=== PATIENT | male | born 1945 | race Caucasian/White ===

== ENCOUNTER → 2016-08-21 | Outpatient (CLI) | payer OTHER | END | disposition home or self-care (01) | LOC: PCVCCLINIC 09:34 | PROVIDERS: ATTEND Internal Medicine Cardiovascular Disease | DX: I11.0 Hypertensive heart disease with heart failure (principal); I50.9 Heart failure, unspecified; I48.0 Paroxysmal atrial fibrillation; I10 Essential (primary) hypertension; I25.10 Atherosclerotic heart disease of native coronary artery without angina pectoris; E11.9 Type 2 diabetes mellitus without complications; I44.0 Atrioventricular block, first degree; E78.00 Pure hypercholesterolemia, unspecified; I42.9 Cardiomyopathy, unspecified; Z79.4 Long term (current) use of insulin; Z79.84 Long term (current) use of oral hypoglycemic drugs; Z79.899 Other long term (current) drug therapy | CPT/HCPCS: 80061; 93005; G0463 ==

== ENCOUNTER → 2017-03-30 | Outpatient (CLI) | payer MEDICARE | END | disposition home or self-care (01) | LOC: PCVCIMAG 13:13 | DX: I08.1 Rheumatic disorders of both mitral and tricuspid valves (principal); I48.2 Chronic atrial fibrillation; I25.10 Atherosclerotic heart disease of native coronary artery without angina pectoris; I12.9 Hypertensive chronic kidney disease with stage 1 through stage 4 chronic kidney disease, or unspecified chronic kidney disease; E11.22 Type 2 diabetes mellitus with diabetic chronic kidney disease; N18.3 Chronic kidney disease, stage 3 (moderate); E78.00 Pure hypercholesterolemia, unspecified; K21.9 Gastro-esophageal reflux disease without esophagitis; G47.33 Obstructive sleep apnea (adult) (pediatric); R09.89 Other specified symptoms and signs involving the circulatory and respiratory systems; I44.0 Atrioventricular block, first degree; E66.9 Obesity, unspecified; R94.31 Abnormal electrocardiogram [ECG] [EKG]; Z79.899 Other long term (current) drug therapy | CPT/HCPCS: 80061; 93005; 93306; G0463 ==

== ENCOUNTER → 2018-04-24 | Outpatient (CLI) | payer MEDICARE | END | disposition home or self-care (01) | LOC: PCVCCLINIC 14:19 | PROVIDERS: ATTEND Internal Medicine Cardiovascular Disease | DX: I25.10 Atherosclerotic heart disease of native coronary artery without angina pectoris (principal); I48.2 Chronic atrial fibrillation; E78.00 Pure hypercholesterolemia, unspecified; R00.1 Bradycardia, unspecified; I38 Endocarditis, valve unspecified; I87.2 Venous insufficiency (chronic) (peripheral); R06.02 Shortness of breath; R53.83 Other fatigue; I11.0 Hypertensive heart disease with heart failure; I50.9 Heart failure, unspecified; G47.33 Obstructive sleep apnea (adult) (pediatric); Z79.84 Long term (current) use of oral hypoglycemic drugs | CPT/HCPCS: 36415; 80061; 93005; G0463 ==

== ENCOUNTER → 2018-05-09 | Outpatient (CLI) | payer MEDICARE ==
[~2018-05-09] MED LIST: REGADENOSON 0.4 MG/5 ML DISP.SYRIN. IV ONE
--- NOTE | 2018-05-09 14:19 | PCVCIMAG ---
EXAM: BILATERAL SUPERFICIAL VENOUS DUPLEX INDICATION: Leg pain and swelling. FINDINGS: Right leg: No thrombus in the common femoral, main femoral, or popliteal veins. These veins are compressible. Right Great Saphenous Vein: At the saphenofemoral junction the diameter is 9.4 mm, in the mid thigh it is 7.3 mm, and in the calf it is 6.2 mm. There is not significant venous insufficiency/reflux throughout. Venous insufficiency/reflux duration is 0.3 seconds. Right Small Saphenous Vein: At the saphenopopliteal junction the diameter is 4.5 mm, and in the calf it is 4.0 mm. There not significant venous insufficiency/reflux throughout. Venous insufficiency/reflux duration is 0.4 seconds. There is not a cranial extension present. Left leg: No thrombus in the common femoral, main femoral, or popliteal veins. These veins are compressible. Left Great Saphenous Vein: At the saphenofemoral junction the diameter is 8.4 mm, in the mid thigh it is 8.0 mm, and in the calf it is 6.2 mm. There is significant venous insufficiency/reflux throughout. Venous insufficiency/reflux duration is 3.8 seconds. Left Small Saphenous Vein: At the saphenopopliteal junction the diameter is 6.4 mm, and in the calf it is 6.2 mm. There is significant venous insufficiency/reflux throughout. Venous insufficiency/reflux duration is 3.8 seconds. There is not a cranial extension present. IMPRESSION: Right Great Saphenous Vein: No significant venous insufficiency/reflux is present as noted above. Right Small Saphenous Vein: No significant venous insufficiency/reflux is present as noted above. Left Great Saphenous Vein: Significant venous insufficiency/reflux is present as noted above. Left Small Saphenous Vein: Significant venous insufficiency/reflux is present as noted above. LOC:[place] [id number]
== END | disposition home or self-care (01) ==
LOC: PCVCIMAG 12:58
PROVIDERS: ATTEND Internal Medicine Cardiovascular Disease
DX: I87.2 Venous insufficiency (chronic) (peripheral) (principal); M79.89 Other specified soft tissue disorders
CPT/HCPCS: 93970; J2785

== ENCOUNTER → 2018-05-15 | Outpatient (CLI) | payer MEDICARE | END | disposition home or self-care (01) | LOC: PCVCCLINIC 11:16 | PROVIDERS: ATTEND Nuclear Medicine Nuclear Cardiology | DX: I87.2 Venous insufficiency (chronic) (peripheral) (principal); I48.2 Chronic atrial fibrillation; E11.9 Type 2 diabetes mellitus without complications; I11.0 Hypertensive heart disease with heart failure; I50.9 Heart failure, unspecified; E78.00 Pure hypercholesterolemia, unspecified; B18.1 Chronic viral hepatitis B without delta-agent; I25.10 Atherosclerotic heart disease of native coronary artery without angina pectoris; Z88.6 Allergy status to analgesic agent; Z88.1 Allergy status to other antibiotic agents | CPT/HCPCS: G0463 ==

== ENCOUNTER → 2018-10-31 | Outpatient (CLI) | payer MEDICARE | END | disposition home or self-care (01) | LOC: PCVCCLINIC 14:15 | PROVIDERS: ATTEND Internal Medicine Cardiovascular Disease | DX: I25.10 Atherosclerotic heart disease of native coronary artery without angina pectoris (principal); I48.2 Chronic atrial fibrillation; I87.2 Venous insufficiency (chronic) (peripheral); E78.00 Pure hypercholesterolemia, unspecified; R00.1 Bradycardia, unspecified; G47.33 Obstructive sleep apnea (adult) (pediatric); I12.9 Hypertensive chronic kidney disease with stage 1 through stage 4 chronic kidney disease, or unspecified chronic kidney disease; N18.3 Chronic kidney disease, stage 3 (moderate); Z88.6 Allergy status to analgesic agent | CPT/HCPCS: 36415; 80061; 93005; G0463 ==